=== PATIENT | female | born 1940 | race Caucasian/White ===

== ENCOUNTER → 2017-08-30 | Outpatient (CLI) | payer MEDICARE ==
[~2017-08-30] MED LIST: ADVAIR 100-501 EACH INH; AMLODIPINE BESY10 MG PO; ASPIR 8181 MG PO; BENICAR HCT 401 EACH PO; DIOVAN160 MG PO; HYDROCHLOROTHIA25 MG PO; LEVOCETIRIZINE D5 MG PO; MAGNESIUM250 MG PO; NEXIUM40 MG PO; NORCO 5-325 TA1 EACH PO; SERTRALINE HCL50 MG PO; SYNTHROID25 MCG PO; XALATAN2.5 ML OU
--- NOTE | 2017-08-30 14:34 | Diagnostic Imaging Report ---
PROCEDURE:X-RAY MODIFIED BARIUM SWALLOW COMPARISON:None. INDICATIONS:Not provided. DISCUSSION:Fluoroscopic examination was performed in conjunction with speech pathology, during swallowing of a variety of thin and thick liquid consistencies. FINDINGS: There is premature spillage to the vallecula on all consistencies. There is premature spillage into the piriform sinuses with thin liquids. Trace vallecular residue with all consistencies. No penetration or aspiration. CONCLUSION:No penetration or aspiration. Please see the report from speech pathology for complete details. Dictated by: Tamara Watt M.D. on 08/30/2017 at 14:35 Electronically approved by: Tamaar Watt M.D. on 08/30/2017 at 14:35
== END ==
LOC: DX 12:04
PROVIDERS: ATTEND Family Medicine
DX: R13.10 Dysphagia, unspecified (principal)
CPT/HCPCS: 74230; 92611; G8996; G8997; G8998

== ENCOUNTER → 2018-11-15 | Outpatient (CLI) | payer MEDICARE ==
--- NOTE | 2018-11-15 18:04 | Diagnostic Imaging Report ---
MRI SPINE LUMBAR WO HISTORY: Right hip and right leg pain COMPARISON: None. TECHNIQUE: Sagittal T1, sagittal T2, sagittal STIR, axial T2, coronal T2, and axial proton density weighted images of the lumbar spine were obtained without contrast. DISCUSSION: Number of non-rib bearing lumbar vertebral bodies: 5. Alignment: Normal lordosis. Subtle thoracolumbar levoscoliosis is present. Vertebrae: Small nodular T1 hyperintense lesions in the L1 and L3 vertebral bodies are likely hemangiomas. Otherwise, no fractures, infection or neoplasm. Conus medullaris: Normal, ends at L1-L2. Cauda equina: No masses or arachnoiditis. Posterior paraspinal muscles: Well preserved. No signal abnormalities. Soft tissues: No signal abnormalities. Mild to moderate multilevel disc degeneration is most prominent at L5-S1. T12-L1: Patent canal and foramina. L1-L2: Disc bulge without significant canal or foraminal stenosis. L2-L3: Disc bulge without significant canal or foraminal stenosis. L3-L4: Mild canal stenosis due to disc bulge and ligamentum flavum thickening. Mild bilateral foraminal stenoses due to disc bulge and facet arthrosis. L4-L5: Mild canal stenosis due to disc bulge and ligamentum flavum thickening. Mild to moderate right and mild left foraminal stenoses due to disc bulge and facet arthrosis. L5-S1: Mild to moderate right and mild left foraminal stenoses due to disc bulge and facet arthrosis. No significant canal stenosis. IMPRESSION: 1. 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 2. Multilevel bilateral degenerative foraminal stenoses - mild to moderate on the right at L4-L5 and L5-S1. 3. Mild degenerative canal stenoses at L3-L4 and L4-L5. Signed by: Dr. Ben Valero M.D. on 11/15/2018 6:01 PM
== END ==
LOC: MRI 14:46
PROVIDERS: ATTEND Family Medicine
DX: M54.16 Radiculopathy, lumbar region (principal)
CPT/HCPCS: 72148

== ENCOUNTER → 2020-05-14 | Outpatient (CLI) | payer MEDICARE | LOC: CARD 13:41 | PROVIDERS: ATTEND Family Medicine | DX: I73.9 Peripheral vascular disease, unspecified (principal) | CPT/HCPCS: 93880 ==

== ENCOUNTER → 2021-04-08 | Outpatient (CLI) | payer MEDICARE | LOC: CT 15:29 | PROVIDERS: ATTEND Family Medicine | DX: R06.02 Shortness of breath (principal) | CPT/HCPCS: 71250 ==

== ENCOUNTER → 2021-04-21 | Outpatient (CLI) | payer MEDICARE ==
[~2021-04-21] MED LIST changes: +GADOBENATE DIMEGLUMINE 1 ML IV ONE; +SODIUM CHLORIDE 0.9% 50ML 50 ML ONE
[2021-04-21 10:22] LABS: CREATININE, SERUM 0.88 mg/dL (0.57-1.11)
== END ==
LOC: MRI 09:24
PROVIDERS: ATTEND Family Medicine
DX: K76.9 Liver disease, unspecified (principal)
CPT/HCPCS: 36415; 74183; 82565; 84520; A9577

== ENCOUNTER → 2021-08-26 | Outpatient (CLI) | payer MEDICARE ==
[~2021-08-26] MED LIST changes: -GADOBENATE DIMEGLUMINE 1 ML IV ONE; -SODIUM CHLORIDE 0.9% 50ML 50 ML ONE
== END ==
LOC: RAD 11:57
PROVIDERS: ATTEND Internal Medicine
DX: M35.3 Polymyalgia rheumatica (principal); M25.552 Pain in left hip; M25.551 Pain in right hip
CPT/HCPCS: 73522

== ENCOUNTER → 2022-03-25 | Outpatient (CLI) | payer MEDICARE | LOC: MRI 07:25 | PROVIDERS: ATTEND Nurse Practitioner Adult Health | DX: M54.31 Sciatica, right side (principal) | CPT/HCPCS: 72148 ==

== ENCOUNTER 2022-04-07 07:36 | Inpatient (IN) | payer MEDICARE ==
[~2022-04-07] VITALS: Ht 162.6 cm; Wt 80.3 kg
[2022-04-07] MEDS ORDERED: SODIUM CHLORIDE FLUSH 10 ML SYR IV PRN (08:00)
[2022-04-07] MEDS ORDERED: SODIUM CHLORIDE 0.9% 1000ML 1,000 ML IV SCH (08:00)
[2022-04-07 08:25] LABS: BASOPHILS % 0.3 % (0.0-1.0); EOSINOPHILS % 0.3 % (0.0-6.0); HEMATOCRIT 30.2 % (34.2-44.1); HEMOGLOBIN 10.3 g/dL (12.0-16.0); LYMPHOCYTES # (AUTO) 1.9 (1.0-3.2); LYMPHOCYTES % 17.4 % (18.0-39.1); MEAN CORPUSCULAR HEMOGLOBIN 28.1 pg (28-32); MEAN CORPUSCULAR HGB CONC 34.1 g/dL (31-35); MEAN CORPUSCULAR VOLUME 82.3 fL (81-99); MONOCYTES % 18.9 % (4.4-11.3); NEUTROPHILS # (AUTO) 6.7 (2.1-6.9); PLATELET COUNT 267 x10e3/uL (140-360); RED BLOOD COUNT 3.67 x10e6/uL (3.6-5.1); RED CELL DISTRIBUTION WIDTH 15.3 % (11.7-14.4)
[2022-04-07 08:45] LABS: ALANINE AMINOTRANSFERASE 29 IU/L (0-55); ALBUMIN 1.8 g/dL (3.5-5.0); ALBUMIN/GLOBULIN RATIO 0.4 (0.8-2.0); ALKALINE PHOSPHATASE 127 IU/L (40-150); ANION GAP 16.6 mmol/L (8-16); BLOOD UREA NITROGEN 26 mg/dL (7-26); BUN/CREATININE RATIO 31 (6-25); CALCIUM 8.7 mg/dL (8.4-10.2); CARBON DIOXIDE 20 mmol/L (22-29); CHLORIDE 87 mmol/L (98-107); CREATININE, SERUM 0.83 mg/dL (0.57-1.11); GLUCOSE 120 mg/dL (74-118); POTASSIUM 4.6 mmol/L (3.5-5.1)
[2022-04-07 08:48] LABS: SODIUM 119 mmol/L (136-145)
[2022-04-07 08:53] LABS: INFLUENZAE A&B ANTIGEN (RAPID) NEGATIVE (NEGATIVE); RESPIRATORY SYNC. VIRUS NEGATIVE (NEGATIVE)
[2022-04-07 08:57] LABS: CLARITY,URINE SL CLOUDY (CLEAR); COLOR,URINE YELLOW (YELLOW); LEUKOCYTE ESTERASE ,URINE NEGATIVE (NEGATIVE)
[2022-04-07 08:58] LABS: AMPHETAMINES SCREEN,URINE NEGATIVE (NEGATIVE); BENZODIAZEPINES SCREEN,URINE NEGATIVE (NEGATIVE); KETONES,URINE TRACE (NEGATIVE); NITRITE,URINE NEGATIVE (NEGATIVE); PHENCYCLIDINE SCREEN,URINE NEGATIVE (NEGATIVE); PROTEIN,URINE DIPSTICK NEGATIVE (NEGATIVE); URINE UROBILINOGEN 0.2 mg/dL (0.2 - 1)
[2022-04-07 09:03] LABS: BACTERIA,URINE MODERATE /HPF; EPITHELIAL CELLS,URINE FEW /LPF; RBC,URINE 0-5 /HPF (0-5)
[2022-04-07 09:06] LABS: INR 1.12; PROTHROMBIN TIME 15.4 seconds (11.9-14.5)
[2022-04-07 09:07] LABS: PARTIAL THROMBOPLASTIN TIME 38.3 seconds (23.8-35.5)
[2022-04-07] MEDS: HYDROCODONE/APAP 10MG-325MG TAB PO PRN (18:27)
[2022-04-07 19:09] VITALS: BP 137/49
[2022-04-07] MEDS: LATANOPROST(OPTH) 2.5 ML BTL OU SCH ×2 (21:00→21:50)
[2022-04-07] MEDS ORDERED: IRBESARTAN150 MG PO (21:38)
[2022-04-07] MEDS ORDERED: AMLODIPINE BESYL5 MG PO (21:38)
[2022-04-07] MEDS ORDERED: ALENDRONATE SOD70 MG PO (21:38)
[2022-04-07] MEDS ORDERED: CELEBREX200 MG PO (21:38)
[2022-04-07] MEDS ORDERED: PANTOPRAZOLE SO40 MG PO (21:38)
[2022-04-07] MEDS ORDERED: SINGULAIR10 MG PO (21:38)
[2022-04-07] MEDS ORDERED: PREDNISONE10 MG PO (21:38)
[2022-04-07] MEDS ORDERED: NEURONTIN100 MG PO (21:38)
[2022-04-07 21:45] VITALS: BP 111/51
[2022-04-07 22:51] VITALS: BP 111/51
[2022-04-08] VITALS (7 sets, daily range): BP systolic 117–146; BP diastolic 43–89
[2022-04-08] MEDS: SODIUM CHLORIDE 0.9% 1000ML 1,000 ML IV SCH ×3 (01:15→21:07)
[2022-04-08] MEDS: HYDROCODONE/APAP 10MG-325MG TAB PO PRN ×3 (02:53→17:25)
[2022-04-08] MEDS: ACETAMINOPHEN 325 MG TAB PO PRN (02:53)
[2022-04-08 06:16] LABS: BASOPHILS % 0.4 % (0.0-1.0); EOSINOPHILS % 0.2 % (0.0-6.0); HEMATOCRIT 26.6 % (34.2-44.1); HEMOGLOBIN 9.3 g/dL (12.0-16.0); LYMPHOCYTES # (AUTO) 1.6 (1.0-3.2); LYMPHOCYTES % 15.2 % (18.0-39.1); MEAN CORPUSCULAR HEMOGLOBIN 28.5 pg (28-32); MEAN CORPUSCULAR VOLUME 81.6 fL (81-99); MONOCYTES # (AUTO) 2.2 (0.2-0.8); NEUTROPHILS # (AUTO) 6.3 (2.1-6.9); NEUTROPHILS % 60.5 % (38.7-80.0); PLATELET COUNT 208 x10e3/uL (140-360); RED BLOOD COUNT 3.26 x10e6/uL (3.6-5.1); RED CELL DISTRIBUTION WIDTH 16.1 % (11.7-14.4)
[2022-04-08 06:54] LABS: ALBUMIN 1.5 g/dL (3.5-5.0); ALBUMIN/GLOBULIN RATIO 0.4 (0.8-2.0); ANION GAP 17.2 mmol/L (8-16); CALCIUM 8.1 mg/dL (8.4-10.2); CREATININE, SERUM 0.88 mg/dL (0.57-1.11); POTASSIUM 4.2 mmol/L (3.5-5.1)
[2022-04-08] MEDS: LEVOTHYROXINE SODIUM 25 MCG TABLET PO SCH (07:51)
[2022-04-08] MEDS ORDERED: VALSARTAN 160 MG TAB PO SCH (09:00)
[2022-04-08] MEDS: LORATADINE 10 MG TAB PO SCH (10:26)
[2022-04-08] MEDS: PANTOPRAZOLE SOD 40 MG TABEC PO SCH (10:26)
[2022-04-08] MEDS: AMLODIPINE BESYLATE 5 MG TAB PO SCH (10:26)
[2022-04-08] MEDS: SERTRALINE HCL 50 MG TAB PO SCH (10:26)
[2022-04-08] MEDS: VALSARTAN 160 MG TAB PO SCH (16:00)
[2022-04-08] MEDS ORDERED: HYDROCHLOROTHIA50 MG PO (16:29)
[2022-04-08] MEDS: SODIUM BICARBONATE 650 MG TAB PO SCH (17:25)
[2022-04-08] MEDS: ONDANSETRON HCL INJ 2MG/ML 2ML 2 MG/ML VIAL IV PRN (17:39)
[2022-04-08] MEDS ORDERED: HYDROCODONE/APAP 5MG-325MG TAB PO PRN (19:00)
[2022-04-08] MEDS: SALMETEROL/FLUTICASONE 100/50 INH SCH (19:00)
[2022-04-08] MEDS: LATANOPROST(OPTH) 2.5 ML BTL OU SCH (21:07)
[2022-04-09] VITALS (8 sets, daily range): BP systolic 126–157; BP diastolic 51–68
[2022-04-09 05:10] LABS: BASOPHILS % 0.3 % (0.0-1.0); EOSINOPHILS % 0.1 % (0.0-6.0); HEMATOCRIT 29.5 % (34.2-44.1); HEMOGLOBIN 9.6 g/dL (12.0-16.0); LYMPHOCYTES # (AUTO) 1.6 (1.0-3.2); LYMPHOCYTES % 15.2 % (18.0-39.1); MEAN CORPUSCULAR HEMOGLOBIN 27.7 pg (28-32); MEAN CORPUSCULAR HGB CONC 32.5 g/dL (31-35); NEUTROPHILS # (AUTO) 6.6 (2.1-6.9); NEUTROPHILS % 63.6 % (38.7-80.0); PLATELET COUNT 231 x10e3/uL (140-360); RED BLOOD COUNT 3.47 x10e6/uL (3.6-5.1)
[2022-04-09 05:27] LABS: ANION GAP 18.4 mmol/L (8-16); CALCIUM 8.4 mg/dL (8.4-10.2); CREATININE, SERUM 1.01 mg/dL (0.57-1.11); MAGNESIUM 2.1 MG/DL (1.3-2.1); PHOSPHORUS 3.7 MG/DL (2.3-4.7); POTASSIUM 4.4 mmol/L (3.5-5.1)
[2022-04-09] MEDS: LEVOTHYROXINE SODIUM 25 MCG TABLET PO SCH (06:00)
[2022-04-09] MEDS ORDERED: ACETAMINOPHEN 1000 MG/100 ML IV PRN (07:00)
[2022-04-09] MEDS: SALMETEROL/FLUTICASONE 100/50 INH SCH (07:00)
[2022-04-09] MEDS: SODIUM CHLORIDE 0.9% 250ML IRRIG IR SCH ×5 (08:00→23:30)
[2022-04-09] MEDS: AMLODIPINE BESYLATE 5 MG TAB PO SCH (09:00)
[2022-04-09] MEDS: DOCUSATE SODIUM 100 MG CAP PO SCH ×2 (09:00→16:59)
[2022-04-09] MEDS: SERTRALINE HCL 50 MG TAB PO SCH (09:00)
[2022-04-09] MEDS: PREDNISONE 5 MG TAB PO SCH (09:00)
[2022-04-09] MEDS: LORATADINE 10 MG TAB PO SCH (09:00)
[2022-04-09] MEDS: PANTOPRAZOLE SOD 40 MG TABEC PO SCH (09:00)
[2022-04-09] MEDS: SODIUM BICARBONATE 650 MG TAB PO SCH (09:00)
[2022-04-09] MEDS: VALSARTAN 160 MG TAB PO SCH (09:00)
[2022-04-09] MEDS: SODIUM CHLORIDE 0.9% 1000ML 1,000 ML IV SCH (12:42)
[2022-04-09] MEDS ORDERED: SODIUM BICARBONATE 8.4% 75 ML in SODIUM CHLORIDE 0.45% 1,000 ML IV ONE (14:00)
[2022-04-09] MEDS ORDERED: BISACODYL 5 MG TAB EC PO ONE (14:00)
[2022-04-09 14:44] LABS: THYROID STIMULATING HORMONE 0.241 uIU/mL (0.350-4.940)
[2022-04-09] MEDS ORDERED: POLYETHYLENE GLYCOL 3350 17 GM PACK PO SCH (18:00)
[2022-04-10] VITALS (8 sets, daily range): BP systolic 140–163; BP diastolic 42–61
[2022-04-10] MEDS: LATANOPROST(OPTH) 2.5 ML BTL OU SCH ×2 (00:03→21:17)
[2022-04-10] MEDS: SODIUM CHLORIDE 0.9% 250ML IRRIG IR SCH ×6 (03:21→22:07)
[2022-04-10] MEDS: LEVOTHYROXINE SODIUM 25 MCG TABLET PO SCH (06:00)
[2022-04-10 06:28] LABS: BASOPHILS % 0.5 % (0.0-1.0); EOSINOPHILS % 0.2 % (0.0-6.0); HEMATOCRIT 26.6 % (34.2-44.1); HEMOGLOBIN 9.1 g/dL (12.0-16.0); LYMPHOCYTES # (AUTO) 1.3 (1.0-3.2); LYMPHOCYTES % 14.8 % (18.0-39.1); MEAN CORPUSCULAR HEMOGLOBIN 27.7 pg (28-32); MEAN CORPUSCULAR HGB CONC 34.2 g/dL (31-35); MEAN CORPUSCULAR VOLUME 81.1 fL (81-99); MONOCYTES # (AUTO) 1.5 (0.2-0.8); NEUTROPHILS # (AUTO) 5.6 (2.1-6.9); NEUTROPHILS % 65.3 % (38.7-80.0); PLATELET COUNT 215 x10e3/uL (140-360); RED BLOOD COUNT 3.28 x10e6/uL (3.6-5.1); RED CELL DISTRIBUTION WIDTH 16.4 % (11.7-14.4)
[2022-04-10 06:58] LABS: ALBUMIN 1.4 g/dL (3.5-5.0); ALBUMIN/GLOBULIN RATIO 0.4 (0.8-2.0); ANION GAP 15.8 mmol/L (8-16); CALCIUM 8.1 mg/dL (8.4-10.2); CREATININE, SERUM 0.8 mg/dL (0.57-1.11); POTASSIUM 3.8 mmol/L (3.5-5.1)
[2022-04-10] MEDS: SALMETEROL/FLUTICASONE 100/50 INH SCH ×2 (07:00→19:00)
[2022-04-10] MEDS: VALSARTAN 160 MG TAB PO SCH (09:00)
[2022-04-10] MEDS: PANTOPRAZOLE SOD 40 MG TABEC PO SCH (09:00)
[2022-04-10] MEDS: LORATADINE 10 MG TAB PO SCH (09:00)
[2022-04-10] MEDS: SERTRALINE HCL 50 MG TAB PO SCH (09:00)
[2022-04-10] MEDS: DOCUSATE SODIUM 100 MG CAP PO SCH ×2 (09:00→16:37)
[2022-04-10] MEDS: AMLODIPINE BESYLATE 5 MG TAB PO SCH (09:00)
[2022-04-10] MEDS: PREDNISONE 5 MG TAB PO SCH (09:00)
[2022-04-10] MEDS: DEXTROSE 5%/0.45% SOD CHL 1,000 ML IV SCH ×2 (09:53→22:07)
[2022-04-10] MEDS ORDERED: BISACODYL 10 MG SUPP PR ONE (11:15)
[2022-04-10] MEDS ORDERED: MINERAL OIL 132 ML BTL PR ONE (12:00)
[2022-04-10] MEDS: METOCLOPRAMIDE HCL 10 MG/2ML VIAL IV SCH ×3 (13:30→23:28)
[2022-04-11] VITALS (8 sets, daily range): BP systolic 128–148; BP diastolic 54–79
[2022-04-11] MEDS: SODIUM CHLORIDE 0.9% 250ML IRRIG IR SCH ×4 (03:01→14:59)
[2022-04-11] MEDS: DOCUSATE SODIUM 100 MG CAP PO SCH ×2 (03:01→17:00)
[2022-04-11] MEDS: LEVOTHYROXINE SODIUM 25 MCG TABLET PO SCH (06:00)
[2022-04-11] MEDS: METOCLOPRAMIDE HCL 10 MG/2ML VIAL IV SCH ×3 (06:11→17:45)
[2022-04-11] MEDS: SALMETEROL/FLUTICASONE 100/50 INH SCH ×2 (07:00→19:00)
[2022-04-11 08:08] LABS: BASOPHILS % 0.4 % (0.0-1.0); EOSINOPHILS % 0.2 % (0.0-6.0); HEMATOCRIT 27.7 % (34.2-44.1); HEMOGLOBIN 8.8 g/dL (12.0-16.0); LYMPHOCYTES # (AUTO) 1.6 (1.0-3.2); LYMPHOCYTES % 18.7 % (18.0-39.1); MEAN CORPUSCULAR HEMOGLOBIN 26.8 pg (28-32); MEAN CORPUSCULAR HGB CONC 31.8 g/dL (31-35); MEAN CORPUSCULAR VOLUME 84.5 fL (81-99); MONOCYTES # (AUTO) 1.5 (0.2-0.8); NEUTROPHILS # (AUTO) 5.1 (2.1-6.9); NEUTROPHILS % 61.4 % (38.7-80.0); PLATELET COUNT 220 x10e3/uL (140-360); RED BLOOD COUNT 3.28 x10e6/uL (3.6-5.1); RED CELL DISTRIBUTION WIDTH 16.3 % (11.7-14.4)
[2022-04-11 08:34] LABS: ANION GAP 17.4 mmol/L (8-16); CALCIUM 8.3 mg/dL (8.4-10.2); CREATININE, SERUM 0.76 mg/dL (0.57-1.11); POTASSIUM 3.4 mmol/L (3.5-5.1)
[2022-04-11] MEDS: VALSARTAN 160 MG TAB PO SCH (09:00)
[2022-04-11] MEDS: PANTOPRAZOLE SOD 40 MG TABEC PO SCH (09:00)
[2022-04-11] MEDS: PREDNISONE 5 MG TAB PO SCH (09:00)
[2022-04-11] MEDS: AMLODIPINE BESYLATE 5 MG TAB PO SCH (09:00)
[2022-04-11] MEDS: LORATADINE 10 MG TAB PO SCH (09:00)
[2022-04-11] MEDS: SERTRALINE HCL 50 MG TAB PO SCH (09:00)
[2022-04-11] MEDS ORDERED: POTASSIUM CHLORIDE 20MEQ/100ML 200 ML IV ONE (10:30)
[2022-04-11] MEDS: SODIUM CHLORIDE 0.9% 1000ML 1,000 ML IV SCH (12:27)
[2022-04-11] MEDS: LATANOPROST(OPTH) 2.5 ML BTL OU SCH (21:11)
[2022-04-12] MEDS: METOCLOPRAMIDE HCL 10 MG/2ML VIAL IV SCH ×2 (01:18→05:43)
[2022-04-12] MEDS: SODIUM CHLORIDE 0.9% 1000ML 1,000 ML IV SCH ×3 (01:18→17:03)
[2022-04-12] MEDS: LEVOTHYROXINE SODIUM 25 MCG TABLET PO SCH ×2 (05:43→05:47)
[2022-04-12 06:24] LABS: ALBUMIN 1.2 g/dL (3.5-5.0); ALBUMIN/GLOBULIN RATIO 0.3 (0.8-2.0); ANION GAP 11.7 mmol/L (8-16); CALCIUM 7.4 mg/dL (8.4-10.2); CREATININE, SERUM 0.66 mg/dL (0.57-1.11); MAGNESIUM 1.8 MG/DL (1.3-2.1); POTASSIUM 3.7 mmol/L (3.5-5.1)
[2022-04-12] MEDS: SALMETEROL/FLUTICASONE 100/50 INH SCH ×2 (07:00→19:00)
[2022-04-12 08:11] VITALS: BP 136/64
[2022-04-12 08:46] VITALS: BP 136/64
[2022-04-12] MEDS: DOCUSATE SODIUM 100 MG CAP PO SCH ×2 (09:00→17:00)
[2022-04-12] MEDS: SERTRALINE HCL 50 MG TAB PO SCH (09:00)
[2022-04-12] MEDS: AMLODIPINE BESYLATE 5 MG TAB PO SCH (09:00)
[2022-04-12] MEDS: LORATADINE 10 MG TAB PO SCH (09:00)
[2022-04-12] MEDS: PREDNISONE 5 MG TAB PO SCH (09:00)
[2022-04-12] MEDS: PANTOPRAZOLE SOD 40 MG TABEC PO SCH (09:00)
[2022-04-12] MEDS: VALSARTAN 160 MG TAB PO SCH (09:00)
[2022-04-12] MEDS: SODIUM CHLORIDE 0.9% 250ML IRRIG IR SCH (11:00)
[2022-04-12 11:18] VITALS: BP 151/62
[2022-04-12] MEDS: KETOROLAC TROMETHAMINE 30 MG/ML VIAL IM PRN ×2 (12:46→21:15)
[2022-04-12 16:06] VITALS: BP 108/49
[2022-04-12 20:20] VITALS: BP 108/49
[2022-04-12] MEDS: LATANOPROST(OPTH) 2.5 ML BTL OU SCH (21:11)
[2022-04-12 21:17] VITALS: BP 147/55
[2022-04-13 01:04] VITALS: BP 108/45
[2022-04-13] MEDS: SODIUM CHLORIDE 0.9% 1000ML 1,000 ML IV SCH (02:15)
[2022-04-13] MEDS: SODIUM CHLORIDE 0.9% 250ML IRRIG IR SCH ×2 (03:25→07:42)
[2022-04-13 03:41] VITALS: BP 130/44
[2022-04-13] MEDS: LEVOTHYROXINE SODIUM 25 MCG TABLET PO SCH (06:00)
[2022-04-13 06:26] LABS: BASOPHILS # (AUTO) 0.1 (0.0-0.1); BASOPHILS % 0.6 % (0.0-1.0); EOSINOPHILS # (AUTO) 0.2 (0.0-0.4); EOSINOPHILS % 1.6 % (0.0-6.0); HEMOGLOBIN 8.6 g/dL (12.0-16.0); LYMPHOCYTES # (AUTO) 1.1 (1.0-3.2); LYMPHOCYTES % 11.6 % (18.0-39.1); MEAN CORPUSCULAR HGB CONC 30.7 g/dL (31-35); MEAN CORPUSCULAR VOLUME 87.8 fL (81-99); MONOCYTES # (AUTO) 1.1 (0.2-0.8); MONOCYTES % 11.9 % (4.4-11.3); NEUTROPHILS % 73.1 % (38.7-80.0); PLATELET COUNT 173 x10e3/uL (140-360); RED BLOOD COUNT 3.19 x10e6/uL (3.6-5.1); RED CELL DISTRIBUTION WIDTH 16.8 % (11.7-14.4)
[2022-04-13 06:51] LABS: ALBUMIN 1.2 g/dL (3.5-5.0); ALBUMIN/GLOBULIN RATIO 0.3 (0.8-2.0); ANION GAP 14.8 mmol/L (8-16); CALCIUM 8.1 mg/dL (8.4-10.2); CREATININE, SERUM 0.69 mg/dL (0.57-1.11); POTASSIUM 3.8 mmol/L (3.5-5.1)
[2022-04-13] MEDS: SALMETEROL/FLUTICASONE 100/50 INH SCH ×2 (07:00→19:00)
[2022-04-13 08:00] VITALS: BP 122/49
[2022-04-13] MEDS: DOCUSATE SODIUM 100 MG CAP PO SCH ×2 (09:00→16:40)
[2022-04-13] MEDS: PANTOPRAZOLE SOD 40 MG TABEC PO SCH (09:00)
[2022-04-13] MEDS: AMLODIPINE BESYLATE 5 MG TAB PO SCH (09:00)
[2022-04-13] MEDS: LORATADINE 10 MG TAB PO SCH (09:00)
[2022-04-13] MEDS: PREDNISONE 5 MG TAB PO SCH (09:00)
[2022-04-13] MEDS: SERTRALINE HCL 50 MG TAB PO SCH (09:00)
[2022-04-13] MEDS: VALSARTAN 160 MG TAB PO SCH (09:00)
[2022-04-13] MEDS: SODIUM BICARBONATE 8.4% 100 ML in DEXTROSE 5% 1,000 ML IV SCH (10:00)
[2022-04-13] MEDS ORDERED: DIATRIZOATE MEGL/DIATRIZOA SOD 120 ML BTL PO ONE ×2 (10:54→10:56)
[2022-04-13 12:02] VITALS: BP 124/42
[2022-04-13 16:00] VITALS: BP 130/64
[2022-04-13] MEDS: LATANOPROST(OPTH) 2.5 ML BTL OU SCH (20:54)
[2022-04-14] VITALS (9 sets, daily range): BP systolic 109–140; BP diastolic 46–63
[2022-04-14] MEDS: SODIUM BICARBONATE 8.4% 100 ML in DEXTROSE 5% 1,000 ML IV SCH ×2 (00:40→15:20)
[2022-04-14] MEDS: LEVOTHYROXINE SODIUM 25 MCG TABLET PO SCH (06:38)
[2022-04-14 06:42] LABS: ALBUMIN 1.2 g/dL (3.5-5.0); ALBUMIN/GLOBULIN RATIO 0.3 (0.8-2.0); ANION GAP 11.5 mmol/L (8-16); CALCIUM 8.1 mg/dL (8.4-10.2); CREATININE, SERUM 0.69 mg/dL (0.57-1.11); MAGNESIUM 2.1 MG/DL (1.3-2.1); PHOSPHORUS 1.6 MG/DL (2.3-4.7); POTASSIUM 3.5 mmol/L (3.5-5.1)
[2022-04-14] MEDS: SALMETEROL/FLUTICASONE 100/50 INH SCH ×2 (07:00→19:00)
[2022-04-14] MEDS: LORATADINE 10 MG TAB PO SCH (09:00)
[2022-04-14] MEDS: PREDNISONE 5 MG TAB PO SCH (09:00)
[2022-04-14] MEDS: AMLODIPINE BESYLATE 5 MG TAB PO SCH (09:00)
[2022-04-14] MEDS: DOCUSATE SODIUM 100 MG CAP PO SCH ×2 (09:00→17:00)
[2022-04-14] MEDS: VALSARTAN 160 MG TAB PO SCH (09:00)
[2022-04-14] MEDS: SERTRALINE HCL 50 MG TAB PO SCH (09:00)
[2022-04-14] MEDS: PANTOPRAZOLE SOD 40 MG TABEC PO SCH (09:00)
[2022-04-14] MEDS ORDERED: POTASSIUM PHOSPHATE 30 MM in SODIUM CHLORIDE 0.9% 250ML 250 ML IV ONE (11:00)
[2022-04-14] MEDS: LATANOPROST(OPTH) 2.5 ML BTL OU SCH (21:13)
[2022-04-15] VITALS (7 sets, daily range): BP systolic 110–136; BP diastolic 44–61
[2022-04-15] MEDS: LEVOTHYROXINE SODIUM 25 MCG TABLET PO SCH (06:20)
[2022-04-15] MEDS: SODIUM BICARBONATE 8.4% 100 ML in DEXTROSE 5% 1,000 ML IV SCH ×2 (06:37→20:40)
[2022-04-15] MEDS: SALMETEROL/FLUTICASONE 100/50 INH SCH ×2 (07:25→19:00)
[2022-04-15] MEDS: DOCUSATE SODIUM 100 MG CAP PO SCH ×2 (09:06→17:00)
[2022-04-15] MEDS: LORATADINE 10 MG TAB PO SCH (09:06)
[2022-04-15] MEDS: PANTOPRAZOLE SOD 40 MG TABEC PO SCH (09:07)
[2022-04-15] MEDS: PREDNISONE 5 MG TAB PO SCH (09:07)
[2022-04-15] MEDS: SERTRALINE HCL 50 MG TAB PO SCH (09:07)
[2022-04-15] MEDS: VALSARTAN 160 MG TAB PO SCH (09:07)
[2022-04-15] MEDS: AMLODIPINE BESYLATE 5 MG TAB PO SCH (09:07)
[2022-04-15] MEDS ORDERED: BUMETANIDE INJ 0.25MG/ML 4ML VIAL IV ONE (11:30)
[2022-04-15 12:09] LABS: ALBUMIN 1.3 g/dL (3.5-5.0); ALBUMIN/GLOBULIN RATIO 0.3 (0.8-2.0); ANION GAP 13.5 mmol/L (8-16); CALCIUM 7.9 mg/dL (8.4-10.2); CREATININE, SERUM 0.63 mg/dL (0.57-1.11); POTASSIUM 3.5 mmol/L (3.5-5.1)
[2022-04-15 12:47] LABS: MAGNESIUM 1.7 MG/DL (1.3-2.1); PHOSPHORUS 2.3 MG/DL (2.3-4.7)
[2022-04-15] MEDS ORDERED: MAGNESIUM SULFATE 2GM/50ML 50 ML IV ONE ×2 (13:15→16:30)
[2022-04-15] MEDS ORDERED: KCL 20MEQ/.9 SOD CHL 1,000 ML IV SCH (13:15)
[2022-04-15] MEDS ORDERED: POTASSIUM CHLORIDE 20MEQ/100ML 100 ML IV ONE (14:00)
[2022-04-15] MEDS ORDERED: METOCLOPRAMIDE HCL 10 MG/2ML VIAL IV ONE (19:30)
[2022-04-15] MEDS: LATANOPROST(OPTH) 2.5 ML BTL OU SCH (20:55)
[2022-04-16] VITALS (8 sets, daily range): BP systolic 116–129; BP diastolic 48–62
[2022-04-16] MEDS: LEVOTHYROXINE SODIUM 25 MCG TABLET PO SCH (06:00)
[2022-04-16 06:35] LABS: BASOPHILS % 0.5 % (0.0-1.0); EOSINOPHILS # (AUTO) 0.2 (0.0-0.4); EOSINOPHILS % 2.1 % (0.0-6.0); HEMATOCRIT 23.2 % (34.2-44.1); HEMOGLOBIN 7.3 g/dL (12.0-16.0); LYMPHOCYTES # (AUTO) 1.5 (1.0-3.2); LYMPHOCYTES % 16.9 % (18.0-39.1); MEAN CORPUSCULAR HEMOGLOBIN 26.6 pg (28-32); MEAN CORPUSCULAR HGB CONC 31.5 g/dL (31-35); MEAN CORPUSCULAR VOLUME 84.7 fL (81-99); MONOCYTES # (AUTO) 1.2 (0.2-0.8); MONOCYTES % 13.9 % (4.4-11.3); NEUTROPHILS # (AUTO) 5.7 (2.1-6.9); NEUTROPHILS % 65.6 % (38.7-80.0); PLATELET COUNT 181 x10e3/uL (140-360); RED BLOOD COUNT 2.74 x10e6/uL (3.6-5.1); RED CELL DISTRIBUTION WIDTH 17.2 % (11.7-14.4)
[2022-04-16] MEDS: SODIUM BICARBONATE 8.4% 100 ML in DEXTROSE 5% 1,000 ML IV SCH ×2 (06:52→10:54)
[2022-04-16 07:14] LABS: ALBUMIN 1.2 g/dL (3.5-5.0); ALBUMIN/GLOBULIN RATIO 0.3 (0.8-2.0); ANION GAP 14.7 mmol/L (8-16); CALCIUM 7.8 mg/dL (8.4-10.2); CREATININE, SERUM 0.76 mg/dL (0.57-1.11); POTASSIUM 3.7 mmol/L (3.5-5.1)
[2022-04-16] MEDS: SALMETEROL/FLUTICASONE 100/50 INH SCH (07:27)
[2022-04-16] MEDS ORDERED: CITRATE OF MAGNESIA 300ML BOTTLE PO ONE (08:15)
[2022-04-16] MEDS: DOCUSATE SODIUM 100 MG CAP PO SCH ×2 (08:21→17:00)
[2022-04-16] MEDS: LORATADINE 10 MG TAB PO SCH (08:22)
[2022-04-16] MEDS: PANTOPRAZOLE SOD 40 MG TABEC PO SCH (08:22)
[2022-04-16] MEDS: SERTRALINE HCL 50 MG TAB PO SCH (08:22)
[2022-04-16] MEDS: PREDNISONE 5 MG TAB PO SCH (08:22)
[2022-04-16] MEDS: AMLODIPINE BESYLATE 5 MG TAB PO SCH (08:23)
[2022-04-16] MEDS ORDERED: CITRATE OF MAGNESIA 300ML BOTTLE PO NR (09:45)
[2022-04-16] MEDS: LATANOPROST(OPTH) 2.5 ML BTL OU SCH (20:33)
[2022-04-16] MEDS: ONDANSETRON HCL INJ 2MG/ML 2ML 2 MG/ML VIAL IV PRN (22:06)
[2022-04-17] VITALS (7 sets, daily range): BP systolic 106–138; BP diastolic 45–53
[2022-04-17] MEDS: SODIUM BICARBONATE 8.4% 100 ML in DEXTROSE 5% 1,000 ML IV SCH ×2 (02:00→17:00)
[2022-04-17] MEDS: LEVOTHYROXINE SODIUM 25 MCG TABLET PO SCH (05:11)
[2022-04-17 06:13] LABS: BASOPHILS % 0.4 % (0.0-1.0); EOSINOPHILS # (AUTO) 0.2 (0.0-0.4); EOSINOPHILS % 1.8 % (0.0-6.0); HEMATOCRIT 23.5 % (34.2-44.1); HEMOGLOBIN 7.3 g/dL (12.0-16.0); LYMPHOCYTES # (AUTO) 1.6 (1.0-3.2); LYMPHOCYTES % 14.3 % (18.0-39.1); MEAN CORPUSCULAR HEMOGLOBIN 26.4 pg (28-32); MEAN CORPUSCULAR HGB CONC 31.1 g/dL (31-35); MEAN CORPUSCULAR VOLUME 84.8 fL (81-99); MONOCYTES # (AUTO) 1.6 (0.2-0.8); MONOCYTES % 14.3 % (4.4-11.3); NEUTROPHILS # (AUTO) 7.7 (2.1-6.9); NEUTROPHILS % 68.1 % (38.7-80.0); PLATELET COUNT 204 x10e3/uL (140-360); RED BLOOD COUNT 2.77 x10e6/uL (3.6-5.1); RED CELL DISTRIBUTION WIDTH 16.9 % (11.7-14.4)
[2022-04-17 06:38] LABS: ANION GAP 16.7 mmol/L (8-16); CALCIUM 8.1 mg/dL (8.4-10.2); CREATININE, SERUM 0.66 mg/dL (0.57-1.11); MAGNESIUM 1.7 MG/DL (1.3-2.1); PHOSPHORUS 2.4 MG/DL (2.3-4.7); POTASSIUM 3.7 mmol/L (3.5-5.1)
[2022-04-17] MEDS: SERTRALINE HCL 50 MG TAB PO SCH (09:09)
[2022-04-17] MEDS: LORATADINE 10 MG TAB PO SCH (09:09)
[2022-04-17] MEDS: AMLODIPINE BESYLATE 5 MG TAB PO SCH (09:09)
[2022-04-17] MEDS: DOCUSATE SODIUM 100 MG CAP PO SCH ×2 (09:09→17:00)
[2022-04-17] MEDS: PANTOPRAZOLE SOD 40 MG TABEC PO SCH (09:09)
[2022-04-17] MEDS: KETOROLAC TROMETHAMINE 30 MG/ML VIAL IM PRN (09:28)
[2022-04-17] MEDS ORDERED: DEXTROSE 5% 0 ML IV ONE (09:33)
[2022-04-17] MEDS: ACETAMINOPHEN 325 MG TAB PO PRN (21:08)
[2022-04-17] MEDS: LATANOPROST(OPTH) 2.5 ML BTL OU SCH (21:09)
[2022-04-18] VITALS (7 sets, daily range): BP systolic 93–144; BP diastolic 42–69
[2022-04-18] MEDS: LEVOTHYROXINE SODIUM 25 MCG TABLET PO SCH (05:52)
[2022-04-18] MEDS: SERTRALINE HCL 50 MG TAB PO SCH (09:05)
[2022-04-18] MEDS: AMLODIPINE BESYLATE 5 MG TAB PO SCH (09:05)
[2022-04-18] MEDS: DOCUSATE SODIUM 100 MG CAP PO SCH ×2 (09:05→17:37)
[2022-04-18] MEDS: PANTOPRAZOLE SOD 40 MG TABEC PO SCH (09:05)
[2022-04-18] MEDS: LORATADINE 10 MG TAB PO SCH (09:05)
[2022-04-18] MEDS: SODIUM BICARBONATE 8.4% 100 ML in DEXTROSE 5% 1,000 ML IV SCH (09:16)
[2022-04-18] MEDS: ACETAMINOPHEN 325 MG TAB PO PRN (09:38)
[2022-04-18] MEDS ORDERED: MAGNESIUM SULFATE 2GM/50ML 50 ML IV ONE (13:00)
[2022-04-18] MEDS: FUROSEMIDE INJ 10 MG/ML 4 ML VIAL IV SCH ×2 (13:34→21:57)
[2022-04-18 13:55] LABS: BASOPHILS # (AUTO) 0.1 (0.0-0.1); EOSINOPHILS # (AUTO) 0.4 (0.0-0.4); EOSINOPHILS % 4.2 % (0.0-6.0); HEMOGLOBIN 7.2 g/dL (12.0-16.0); LYMPHOCYTES # (AUTO) 1.5 (1.0-3.2); LYMPHOCYTES % 17.5 % (18.0-39.1); MEAN CORPUSCULAR HEMOGLOBIN 26.6 pg (28-32); MEAN CORPUSCULAR HGB CONC 32.9 g/dL (31-35); MEAN CORPUSCULAR VOLUME 80.8 fL (81-99); MONOCYTES % 12.1 % (4.4-11.3); NEUTROPHILS # (AUTO) 5.4 (2.1-6.9); NEUTROPHILS % 64.1 % (38.7-80.0); RED BLOOD COUNT 2.71 x10e6/uL (3.6-5.1); RED CELL DISTRIBUTION WIDTH 17.7 % (11.7-14.4)
[2022-04-18 14:01] LABS: HEMATOCRIT 21.9 % (34.2-44.1)
[2022-04-18 14:02] LABS: PLATELET COUNT 254 x10e3/uL (140-360)
[2022-04-18 14:14] LABS: ANION GAP 14.4 mmol/L (8-16); CALCIUM 7.8 mg/dL (8.4-10.2); CREATININE, SERUM 1.04 mg/dL (0.57-1.11); POTASSIUM 3.4 mmol/L (3.5-5.1)
[2022-04-18] MEDS: LATANOPROST(OPTH) 2.5 ML BTL OU SCH (21:57)
[2022-04-19 00:30] VITALS: BP 115/43
[2022-04-19 04:30] VITALS: BP 133/49
[2022-04-19] MEDS: LEVOTHYROXINE SODIUM 25 MCG TABLET PO SCH (06:10)
[2022-04-19] MEDS: FUROSEMIDE INJ 10 MG/ML 4 ML VIAL IV SCH ×3 (06:10→21:00)
[2022-04-19 06:12] LABS: BASOPHILS # (AUTO) 0.1 (0.0-0.1); BASOPHILS % 0.5 % (0.0-1.0); EOSINOPHILS # (AUTO) 0.4 (0.0-0.4); EOSINOPHILS % 4.8 % (0.0-6.0); HEMATOCRIT 23.5 % (34.2-44.1); HEMOGLOBIN 7.4 g/dL (12.0-16.0); LYMPHOCYTES # (AUTO) 1.9 (1.0-3.2); LYMPHOCYTES % 20.9 % (18.0-39.1); MEAN CORPUSCULAR HEMOGLOBIN 26.4 pg (28-32); MEAN CORPUSCULAR HGB CONC 31.5 g/dL (31-35); MEAN CORPUSCULAR VOLUME 83.9 fL (81-99); MONOCYTES # (AUTO) 1.1 (0.2-0.8); NEUTROPHILS # (AUTO) 5.5 (2.1-6.9); NEUTROPHILS % 60.7 % (38.7-80.0); PLATELET COUNT 299 x10e3/uL (140-360); RED CELL DISTRIBUTION WIDTH 17.5 % (11.7-14.4)
[2022-04-19 06:47] LABS: ALBUMIN 1.2 g/dL (3.5-5.0); ALBUMIN/GLOBULIN RATIO 0.3 (0.8-2.0); ANION GAP 14.4 mmol/L (8-16); CALCIUM 7.7 mg/dL (8.4-10.2); CREATININE, SERUM 1.06 mg/dL (0.57-1.11); MAGNESIUM 1.8 MG/DL (1.3-2.1); PHOSPHORUS 3.7 MG/DL (2.3-4.7); POTASSIUM 3.4 mmol/L (3.5-5.1)
[2022-04-19] MEDS: SALMETEROL/FLUTICASONE 100/50 INH SCH (07:00)
[2022-04-19 07:45] LABS: FERRITIN 2506.09 ng/mL (4.63-204.00)
[2022-04-19] MEDS: AMLODIPINE BESYLATE 5 MG TAB PO SCH (09:00)
[2022-04-19] MEDS: LORATADINE 10 MG TAB PO SCH (09:00)
[2022-04-19] MEDS: PANTOPRAZOLE SOD 40 MG TABEC PO SCH (09:00)
[2022-04-19] MEDS: DOCUSATE SODIUM 100 MG CAP PO SCH ×2 (09:00→17:00)
[2022-04-19] MEDS: ONDANSETRON HCL INJ 2MG/ML 2ML 2 MG/ML VIAL IV PRN (09:40)
[2022-04-19 09:41] VITALS: BP 125/65
[2022-04-19 12:36] VITALS: BP 108/42
[2022-04-19 13:11] LABS: ABG HCO3 29 mmol/L (22-26); ABG PCO2 35 mmHg (35-45); ABG PH 7.53 (7.35-7.45); ABG PO2 75 mmHg (80-105); ABG TCO2 30
[2022-04-19 16:21] VITALS: BP 120/59
[2022-04-19] MEDS ORDERED: BISACODYL 5 MG TAB EC PO ONE (19:55)
[2022-04-19 20:00] VITALS: BP 122/43
[2022-04-19] MEDS: LATANOPROST(OPTH) 2.5 ML BTL OU SCH (20:26)
[2022-04-19] MEDS ORDERED: IOPAMIDOL 370 MG/ML 100 ML INFUS..BTL INJ ONE (21:15)
[2022-04-20] VITALS (9 sets, daily range): BP systolic 106–125; BP diastolic 41–86
[2022-04-20] MEDS: LEVOTHYROXINE SODIUM 25 MCG TABLET PO SCH (03:01)
[2022-04-20] MEDS: FUROSEMIDE INJ 10 MG/ML 4 ML VIAL IV SCH ×3 (05:37→21:45)
[2022-04-20] MEDS: SALMETEROL/FLUTICASONE 100/50 INH SCH ×3 (06:35→19:35)
[2022-04-20] MEDS ORDERED: PEG (High)/E-LYTE SOLN 4,000 ML BTL NG ONE ×2 (07:30→15:00)
[2022-04-20] MEDS: LORATADINE 10 MG TAB PO SCH (09:13)
[2022-04-20] MEDS: PANTOPRAZOLE SOD 40 MG TABEC PO SCH (09:13)
[2022-04-20] MEDS: DOCUSATE SODIUM 100 MG CAP PO SCH ×2 (09:13→17:00)
[2022-04-20] MEDS: AMLODIPINE BESYLATE 5 MG TAB PO SCH (09:18)
[2022-04-20] MEDS ORDERED: ALTEPLASE RECOMBINANT 2 MG/2 ML VIAL IV ONE (18:30)
[2022-04-20] MEDS ORDERED: IRON SUCROSE 100 MG in SODIUM CHLORIDE 0.9% 100 ML IV SCH (18:45)
[2022-04-20 19:18] LABS: ALBUMIN 1.4 g/dL (3.5-5.0); ALBUMIN/GLOBULIN RATIO 0.4 (0.8-2.0); ANION GAP 16.1 mmol/L (8-16); CALCIUM 8.1 mg/dL (8.4-10.2); CREATININE, SERUM 1.27 mg/dL (0.57-1.11); POTASSIUM 3.1 mmol/L (3.5-5.1)
[2022-04-20] MEDS ORDERED: MAGNESIUM SULF 1GRAM/DEXTROSE 100 ML IV ONE (19:45)
[2022-04-20] MEDS: IRON SUCROSE 100 MG in SODIUM CHLORIDE 0.9% 100 ML IV SCH (20:23)
[2022-04-20] MEDS: POTASSIUM CHLORIDE 20MEQ/100ML 100 ML IV SCH ×2 (20:24→21:46)
[2022-04-20] MEDS: LATANOPROST(OPTH) 2.5 ML BTL OU SCH (21:48)
[2022-04-21] VITALS (7 sets, daily range): BP systolic 109–159; BP diastolic 42–71
[2022-04-21] MEDS: LEVOTHYROXINE SODIUM 25 MCG TABLET PO SCH (06:00)
[2022-04-21 07:00] LABS: ALBUMIN 1.3 g/dL (3.5-5.0); ALBUMIN/GLOBULIN RATIO 0.4 (0.8-2.0); ANION GAP 16.2 mmol/L (8-16); CALCIUM 7.7 mg/dL (8.4-10.2); CREATININE, SERUM 1.01 mg/dL (0.57-1.11); POTASSIUM 3.2 mmol/L (3.5-5.1)
[2022-04-21 07:03] LABS: MAGNESIUM 1.7 MG/DL (1.3-2.1); PHOSPHORUS 3.7 MG/DL (2.3-4.7)
[2022-04-21] MEDS: FUROSEMIDE INJ 10 MG/ML 4 ML VIAL IV SCH ×3 (07:12→21:19)
[2022-04-21] MEDS: SALMETEROL/FLUTICASONE 100/50 INH SCH ×2 (07:14→19:00)
[2022-04-21 07:38] LABS: BASOPHILS # (AUTO) 0.1 (0.0-0.1); BASOPHILS % 0.6 % (0.0-1.0); EOSINOPHILS # (AUTO) 0.8 (0.0-0.4); EOSINOPHILS % 8.8 % (0.0-6.0); LYMPHOCYTES # (AUTO) 1.5 (1.0-3.2); MEAN CORPUSCULAR HEMOGLOBIN 26.1 pg (28-32); MEAN CORPUSCULAR HGB CONC 30.8 g/dL (31-35); MEAN CORPUSCULAR VOLUME 84.6 fL (81-99); MONOCYTES # (AUTO) 1.4 (0.2-0.8); MONOCYTES % 15.3 % (4.4-11.3); NEUTROPHILS # (AUTO) 5.2 (2.1-6.9); NEUTROPHILS % 57.1 % (38.7-80.0); PLATELET COUNT 262 x10e3/uL (140-360); RED BLOOD COUNT 2.53 x10e6/uL (3.6-5.1); RED CELL DISTRIBUTION WIDTH 17.8 % (11.7-14.4)
[2022-04-21 07:49] LABS: HEMATOCRIT 21.4 % (34.2-44.1); HEMOGLOBIN 6.6 g/dL (12.0-16.0)
[2022-04-21] MEDS ORDERED: SODIUM CHLORIDE 0.9% 250ML 250 ML IV ONE (08:15)
[2022-04-21] MEDS ORDERED: CITRATE OF MAGNESIA 300ML BOTTLE PO ONE (08:45)
[2022-04-21] MEDS: LORATADINE 10 MG TAB PO SCH (09:00)
[2022-04-21] MEDS: AMLODIPINE BESYLATE 5 MG TAB PO SCH (09:00)
[2022-04-21] MEDS: PANTOPRAZOLE SOD 40 MG TABEC PO SCH (09:00)
[2022-04-21] MEDS: DOCUSATE SODIUM 100 MG CAP PO SCH ×2 (09:00→17:00)
[2022-04-21] MEDS ORDERED: DEXTROSE 5%/0.45% SOD CHL 1,000 ML IV SCH (10:30)
[2022-04-21] MEDS: DEXTROSE 5%/0.9% SOD CHL 1,000 ML IV SCH (12:48)
[2022-04-21] MEDS ORDERED: MAGNESIUM SULFATE 2GM/50ML 50 ML IV ONE (13:00)
[2022-04-21] MEDS ORDERED: PROPOFOL IV EMULSION 10 MG/ML 20 ML VIAL ONE (13:38)
[2022-04-21] MEDS: POTASSIUM CHLORIDE 20MEQ/100ML 100 ML IV SCH ×2 (13:51→16:30)
[2022-04-21] MEDS ORDERED: SODIUM CHLORIDE 0.9% 250ML 250 ML ONE ×2 (14:31→17:50)
[2022-04-21] MEDS: IRON SUCROSE 100 MG in SODIUM CHLORIDE 0.9% 100 ML IV SCH (15:30)
[2022-04-21] MEDS: SUCRALFATE 1 GM TAB PO SCH (21:19)
[2022-04-21] MEDS: LATANOPROST(OPTH) 2.5 ML BTL OU SCH (21:20)
[2022-04-22] VITALS (8 sets, daily range): BP systolic 104–123; BP diastolic 48–63
[2022-04-22 06:11] LABS: BASOPHILS # (AUTO) 0.1 (0.0-0.1); EOSINOPHILS % 10.1 % (0.0-6.0); HEMATOCRIT 28.2 % (34.2-44.1); HEMOGLOBIN 9.6 g/dL (12.0-16.0); LYMPHOCYTES # (AUTO) 1.4 (1.0-3.2); LYMPHOCYTES % 13.8 % (18.0-39.1); MEAN CORPUSCULAR HEMOGLOBIN 26.2 pg (28-32); MONOCYTES # (AUTO) 1.3 (0.2-0.8); MONOCYTES % 13.1 % (4.4-11.3); NEUTROPHILS # (AUTO) 6.2 (2.1-6.9); NEUTROPHILS % 60.7 % (38.7-80.0); PLATELET COUNT 251 x10e3/uL (140-360); RED BLOOD COUNT 3.66 x10e6/uL (3.6-5.1); RED CELL DISTRIBUTION WIDTH 18.1 % (11.7-14.4)
[2022-04-22] MEDS: LEVOTHYROXINE SODIUM 25 MCG TABLET PO SCH (06:16)
[2022-04-22 06:30] LABS: ALBUMIN 1.4 g/dL (3.5-5.0); ALBUMIN/GLOBULIN RATIO 0.4 (0.8-2.0); ANION GAP 13.8 mmol/L (8-16); CALCIUM 7.7 mg/dL (8.4-10.2); CREATININE, SERUM 0.81 mg/dL (0.57-1.11)
[2022-04-22 06:41] LABS: POTASSIUM 2.8 mmol/L (3.5-5.1)
[2022-04-22 06:59] LABS: MAGNESIUM 1.5 MG/DL (1.3-2.1); PHOSPHORUS 2.5 MG/DL (2.3-4.7)
[2022-04-22] MEDS: PANTOPRAZOLE SOD 40 MG TABEC PO SCH (08:30)
[2022-04-22] MEDS: AMLODIPINE BESYLATE 5 MG TAB PO SCH (08:30)
[2022-04-22] MEDS: FUROSEMIDE INJ 10 MG/ML 4 ML VIAL IV SCH (08:30)
[2022-04-22] MEDS: SUCRALFATE 1 GM TAB PO SCH ×4 (08:30→21:00)
[2022-04-22] MEDS: LORATADINE 10 MG TAB PO SCH (08:30)
[2022-04-22] MEDS: DOCUSATE SODIUM 100 MG CAP PO SCH ×2 (08:30→16:14)
[2022-04-22] MEDS: SALMETEROL/FLUTICASONE 100/50 INH SCH ×2 (09:00→20:05)
[2022-04-22] MEDS: DEXTROSE 5%/0.9% SOD CHL 1,000 ML IV SCH (09:00)
[2022-04-22] MEDS: SODIUM CHLORIDE 0.9% 1000ML 1,000 ML IV SCH (10:25)
[2022-04-22] MEDS: POTASSIUM CHLORIDE 20MEQ/100ML 100 ML IV SCH ×3 (10:25→13:39)
[2022-04-22] MEDS ORDERED: ONDANSETRON HCL 4 MG ORAL DISINTEGRATING TAB PO PRN (11:45)
[2022-04-22] MEDS ORDERED: MAGNESIUM SULFATE 2GM/50ML 50 ML IV ONE ×2 (13:00→16:00)
[2022-04-22] MEDS: IRON SUCROSE 100 MG in SODIUM CHLORIDE 0.9% 100 ML IV SCH (13:39)
[2022-04-22] MEDS: SODIUM CHLORIDE 1 GM TAB PO SCH ×2 (18:30→21:00)
[2022-04-22] MEDS: LATANOPROST(OPTH) 2.5 ML BTL OU SCH (21:00)
[2022-04-23] VITALS (7 sets, daily range): BP systolic 109–127; BP diastolic 46–64
[2022-04-23] MEDS: LEVOTHYROXINE SODIUM 25 MCG TABLET PO SCH (05:24)
[2022-04-23] MEDS: SODIUM CHLORIDE 0.9% 1000ML 1,000 ML IV SCH (05:27)
[2022-04-23] MEDS: SALMETEROL/FLUTICASONE 100/50 INH SCH ×2 (06:15→20:20)
[2022-04-23 07:52] LABS: ALBUMIN 1.3 g/dL (3.5-5.0); ALBUMIN/GLOBULIN RATIO 0.4 (0.8-2.0); ANION GAP 15.5 mmol/L (8-16); CALCIUM 7.6 mg/dL (8.4-10.2); CREATININE, SERUM 0.73 mg/dL (0.57-1.11); POTASSIUM 3.5 mmol/L (3.5-5.1)
[2022-04-23] MEDS: FUROSEMIDE 40 MG TAB PO SCH (08:29)
[2022-04-23] MEDS: DOCUSATE SODIUM 100 MG CAP PO SCH ×2 (08:29→16:33)
[2022-04-23] MEDS: PANTOPRAZOLE SOD 40 MG TABEC PO SCH (08:29)
[2022-04-23] MEDS: SODIUM CHLORIDE 1 GM TAB PO SCH ×3 (08:29→21:00)
[2022-04-23] MEDS: SUCRALFATE 1 GM TAB PO SCH ×4 (08:29→21:00)
[2022-04-23] MEDS: LORATADINE 10 MG TAB PO SCH (08:29)
[2022-04-23] MEDS: LATANOPROST(OPTH) 2.5 ML BTL OU SCH (21:00)
[2022-04-24] VITALS (7 sets, daily range): BP systolic 119–148; BP diastolic 45–72
[2022-04-24] MEDS: SODIUM CHLORIDE 0.9% 1000ML 1,000 ML IV SCH ×2 (05:21→20:04)
[2022-04-24] MEDS: LEVOTHYROXINE SODIUM 25 MCG TABLET PO SCH (05:44)
[2022-04-24] MEDS: FUROSEMIDE 40 MG TAB PO SCH (09:16)
[2022-04-24] MEDS: LORATADINE 10 MG TAB PO SCH (09:17)
[2022-04-24] MEDS: PANTOPRAZOLE SOD 40 MG TABEC PO SCH (09:17)
[2022-04-24] MEDS: DOCUSATE SODIUM 100 MG CAP PO SCH ×2 (09:17→16:05)
[2022-04-24] MEDS: SUCRALFATE 1 GM TAB PO SCH ×4 (09:17→20:04)
[2022-04-24] MEDS: SODIUM CHLORIDE 1 GM TAB PO SCH ×3 (09:17→20:04)
[2022-04-24] MEDS: SALMETEROL/FLUTICASONE 100/50 INH SCH ×2 (10:50→19:05)
[2022-04-24] MEDS: ACETAMINOPHEN 325 MG TAB PO PRN (20:03)
[2022-04-24] MEDS: LATANOPROST(OPTH) 2.5 ML BTL OU SCH (20:12)
[2022-04-25] VITALS (7 sets, daily range): BP systolic 123–157; BP diastolic 52–92
[2022-04-25] MEDS: LEVOTHYROXINE SODIUM 25 MCG TABLET PO SCH (06:00)
[2022-04-25] MEDS: SALMETEROL/FLUTICASONE 100/50 INH SCH ×2 (07:00→19:00)
[2022-04-25] MEDS: PANTOPRAZOLE SOD 40 MG TABEC PO SCH (11:10)
[2022-04-25] MEDS: FUROSEMIDE 40 MG TAB PO SCH (11:10)
[2022-04-25] MEDS: SUCRALFATE 1 GM TAB PO SCH ×4 (11:10→21:12)
[2022-04-25] MEDS: SODIUM CHLORIDE 1 GM TAB PO SCH ×3 (11:10→21:12)
[2022-04-25] MEDS: LORATADINE 10 MG TAB PO SCH (11:10)
[2022-04-25] MEDS: DOCUSATE SODIUM 100 MG CAP PO SCH ×2 (11:18→17:47)
[2022-04-25] MEDS: FUROSEMIDE INJ 10 MG/ML 4 ML VIAL IV SCH ×2 (16:06→17:47)
[2022-04-25 16:44] LABS: ALBUMIN 1.4 g/dL (3.5-5.0); ALBUMIN/GLOBULIN RATIO 0.4 (0.8-2.0); ANION GAP 15.9 mmol/L (8-16); CALCIUM 7.8 mg/dL (8.4-10.2); CREATININE, SERUM 0.76 mg/dL (0.57-1.11)
[2022-04-25 16:45] LABS: POTASSIUM 2.9 mmol/L (3.5-5.1)
[2022-04-25] MEDS: LATANOPROST(OPTH) 2.5 ML BTL OU SCH (21:12)
[2022-04-25] MEDS: POTASSIUM CHLORIDE 20MEQ/100ML 100 ML IV SCH ×2 (21:14→23:18)
[2022-04-26] VITALS: BP 128/50
[2022-04-26] MEDS: FUROSEMIDE INJ 10 MG/ML 4 ML VIAL IV SCH ×2 (00:22→06:38)
[2022-04-26] MEDS: POTASSIUM CHLORIDE 20MEQ/100ML 100 ML IV SCH ×2 (00:30→01:19)
[2022-04-26] MEDS ORDERED: POTASSIUM CHLORIDE 20MEQ/100ML 100 ML IV ONE (03:45)
[2022-04-26 04:00] VITALS: BP 129/63
[2022-04-26] MEDS: LEVOTHYROXINE SODIUM 25 MCG TABLET PO SCH (06:00)
[2022-04-26] MEDS: SALMETEROL/FLUTICASONE 100/50 INH SCH (06:10)
[2022-04-26 07:59] LABS: BASOPHILS # (AUTO) 0.1 (0.0-0.1); BASOPHILS % 1.4 % (0.0-1.0); EOSINOPHILS # (AUTO) 0.5 (0.0-0.4); HEMATOCRIT 31.4 % (34.2-44.1); HEMOGLOBIN 10.1 g/dL (12.0-16.0); LYMPHOCYTES # (AUTO) 1.7 (1.0-3.2); LYMPHOCYTES % 17.5 % (18.0-39.1); MEAN CORPUSCULAR HEMOGLOBIN 26.4 pg (28-32); MEAN CORPUSCULAR HGB CONC 32.2 g/dL (31-35); MONOCYTES # (AUTO) 1.4 (0.2-0.8); MONOCYTES % 14.4 % (4.4-11.3); NEUTROPHILS # (AUTO) 5.9 (2.1-6.9); NEUTROPHILS % 60.4 % (38.7-80.0); PLATELET COUNT 215 x10e3/uL (140-360); RED BLOOD COUNT 3.83 x10e6/uL (3.6-5.1); RED CELL DISTRIBUTION WIDTH 18.5 % (11.7-14.4)
[2022-04-26 08:10] VITALS: BP 129/63
[2022-04-26 08:12] LABS: ALBUMIN 1.4 g/dL (3.5-5.0); ALBUMIN/GLOBULIN RATIO 0.4 (0.8-2.0); ANION GAP 13.5 mmol/L (8-16); CALCIUM 7.8 mg/dL (8.4-10.2); CREATININE, SERUM 0.74 mg/dL (0.57-1.11); POTASSIUM 3.5 mmol/L (3.5-5.1)
[2022-04-26 08:32] VITALS: BP 131/70
[2022-04-26] MEDS: LORATADINE 10 MG TAB PO SCH (08:55)
[2022-04-26] MEDS: SODIUM CHLORIDE 1 GM TAB PO SCH ×2 (08:55→15:58)
[2022-04-26] MEDS: DOCUSATE SODIUM 100 MG CAP PO SCH ×2 (08:55→18:14)
[2022-04-26] MEDS: PANTOPRAZOLE SOD 40 MG TABEC PO SCH (08:55)
[2022-04-26] MEDS: SUCRALFATE 1 GM TAB PO SCH ×3 (08:55→18:14)
[2022-04-26] MEDS ORDERED: SODIUM CHLORIDE FLUSH 10 ML SYR IV SCH (09:00)
[2022-04-26] MEDS ORDERED: POTASSIUM CHLORIDE 20 MEQ TAB CR PO ONE (11:45)
[2022-04-26 11:51] VITALS: BP 124/56
[2022-04-26 15:54] VITALS: BP 110/51
[2022-04-26] MEDS ORDERED: FUROSEMIDE 40 MG TAB PO SCH (18:00)
== END 2022-04-26 19:04 | DRG 643 ==
LOC: ER 08:00 → ERHOLD 12:07 → MED/SURG3 16:57 → MED/SURG2 04-16 17:52
PROVIDERS: ADMIT Family Medicine; ATTEND Family Medicine
PROC: 02HV33Z Insertion of Infusion Device into Superior Vena Cava, Percutaneous Approach (ICD-10-PCS; 2022-04-07)
PROC: 30243N1 Transfusion of Nonautologous Red Blood Cells into Central Vein, Percutaneous Approach (ICD-10-PCS; 2022-04-21)
PROC: 0DBP8ZX Excision of Rectum, Via Natural or Artificial Opening Endoscopic, Diagnostic (ICD-10-PCS; principal; 2022-04-21 18:28)
PROC: 0DBN8ZX Excision of Sigmoid Colon, Via Natural or Artificial Opening Endoscopic, Diagnostic (ICD-10-PCS; 2022-04-21 18:28)
DX: E22.2 Syndrome of inappropriate secretion of antidiuretic hormone (principal); K29.71 Gastritis, unspecified, with bleeding; E44.0 Moderate protein-calorie malnutrition; N17.9 Acute kidney failure, unspecified; E87.21 Acute metabolic acidosis; K56.7 Ileus, unspecified; N39.0 Urinary tract infection, site not specified; R53.1 Weakness; E86.0 Dehydration; I10 Essential (primary) hypertension; E03.9 Hypothyroidism, unspecified; M35.3 Polymyalgia rheumatica; M48.02 Spinal stenosis, cervical region; G89.4 Chronic pain syndrome; K59.03 Drug induced constipation; T40.2X5A Adverse effect of other opioids, initial encounter; K63.5 Polyp of colon; K57.30 Diverticulosis of large intestine without perforation or abscess without bleeding; K64.8 Other hemorrhoids; K31.7 Polyp of stomach and duodenum; Z82.49 Family history of ischemic heart disease and other diseases of the circulatory system; Z79.52 Long term (current) use of systemic steroids; Z88.5 Allergy status to narcotic agent; Z86.718 Personal history of other venous thrombosis and embolism; Z85.3 Personal history of malignant neoplasm of breast; Z20.822 Contact with and (suspected) exposure to COVID-19; R33.9 Retention of urine, unspecified; T83.091A Other mechanical complication of indwelling urethral catheter, initial encounter; E87.6 Hypokalemia; D50.9 Iron deficiency anemia, unspecified; E66.9 Obesity, unspecified; Z68.30 Body mass index [BMI] 30.0-30.9, adult; K21.9 Gastro-esophageal reflux disease without esophagitis
CPT/HCPCS: 36415; 36569; 36600; 43239; 45378; 45385; 70450; 71045; 72125; 74018; 74022; 74176; 74177; 74270; 80048; 80053; 80307; 81001; 82140; 82533; 82728; 82805; 82948; 83540; 83605; 83735; 83935; 84100; 84436; 84443; 84466; 84479; 84484; 84550; 85025; 85610; 85730; 86850; 86900; 86920; 87040; 87086; 87400; 87420; 88305; 88342; 93005; 94664; 94760; 94799; 96361; 99251; 99284; J0456; J0696; J1756; J1885; J1940; J2405; J2543; J2765; J3475; J3480; J7030; J7042; J7050; J7070; J7512; P9016; Q0162; Q9963; Q9967

== ENCOUNTER 2022-05-04 14:05 | Inpatient (IN) | payer MEDICARE ==
[~2022-05-04] VITALS: Ht 162.6 cm; Wt 87.2 kg
[~2022-05-04 14:05] MED LIST changes: +ALENDRONATE SOD70 MG PO; +AMLODIPINE BESYL5 MG PO; +CELEBREX200 MG PO; +HYDROCHLOROTHIA50 MG PO; +IRBESARTAN150 MG PO; +NEURONTIN100 MG PO; +PANTOPRAZOLE SO40 MG PO; +PREDNISONE10 MG PO; +SINGULAIR10 MG PO
[2022-05-04 14:48] LABS: BASOPHILS # (AUTO) 0.1 (0.0-0.1); BASOPHILS % 0.8 % (0.0-1.0); EOSINOPHILS # (AUTO) 0.2 (0.0-0.4); EOSINOPHILS % 1.9 % (0.0-6.0); HEMATOCRIT 27.6 % (34.2-44.1); HEMOGLOBIN 8.8 g/dL (12.0-16.0); LYMPHOCYTES # (AUTO) 1.9 (1.0-3.2); LYMPHOCYTES % 16.2 % (18.0-39.1); MEAN CORPUSCULAR HEMOGLOBIN 25.7 pg (28-32); MEAN CORPUSCULAR HGB CONC 31.9 g/dL (31-35); MEAN CORPUSCULAR VOLUME 80.5 fL (81-99); MONOCYTES # (AUTO) 1.8 (0.2-0.8); MONOCYTES % 15.2 % (4.4-11.3); NEUTROPHILS # (AUTO) 7.7 (2.1-6.9); NEUTROPHILS % 64.2 % (38.7-80.0); PLATELET COUNT 143 x10e3/uL (140-360); RED BLOOD COUNT 3.43 x10e6/uL (3.6-5.1); RED CELL DISTRIBUTION WIDTH 18.8 % (11.7-14.4)
[2022-05-04 14:51] LABS: CLARITY,URINE CLOUDY (CLEAR); COLOR,URINE YELLOW (YELLOW); KETONES,URINE TRACE (NEGATIVE); LEUKOCYTE ESTERASE ,URINE LARGE (NEGATIVE); NITRITE,URINE NEGATIVE (NEGATIVE); PROTEIN,URINE DIPSTICK 2+ (NEGATIVE)
[2022-05-04 14:52] LABS: URINE UROBILINOGEN 1 mg/dL (0.2 - 1)
[2022-05-04 15:02] LABS: BACTERIA,URINE MODERATE /HPF; WBC,URINE (MAN) >50 /HPF (0-5)
[2022-05-04 15:09] LABS: ALBUMIN 1.3 g/dL (3.5-5.0); ALBUMIN/GLOBULIN RATIO 0.3 (0.8-2.0); ANION GAP 17.1 mmol/L (8-16); CREATININE, SERUM 0.85 mg/dL (0.57-1.11); POTASSIUM 3.1 mmol/L (3.5-5.1)
[2022-05-04 15:27] LABS: INFLUENZAE A&B ANTIGEN (RAPID) NEGATIVE (NEGATIVE)
[2022-05-04 15:38] LABS: RESPIRATORY SYNC. VIRUS NEGATIVE (NEGATIVE)
[2022-05-04] MEDS ORDERED: SODIUM CHLORIDE 0.9% 500ML 500 ML IV STA (16:19)
[2022-05-04 19:00] VITALS: BP 121/68
[2022-05-04] MEDS: IPRATROPIUM BROMIDE 0.02% 2.5 ML NEB NEB SCH (19:00)
[2022-05-04] MEDS ORDERED: SODIUM CHLORIDE 0.9% 1000ML 1,000 ML IV ONE (19:15)
[2022-05-04] MEDS: ENOXAPARIN SOD INJ 40 MG/0.4 ML SYR SC SCH (19:55)
[2022-05-04 20:00] VITALS: BP 121/68
[2022-05-04] MEDS ORDERED: Vancomycin IV 1 GM in SODIUM CHLORIDE 0.9% 250ML 250 ML IV ONE (20:00)
[2022-05-04 20:26] LABS: EOSINOPHILS % (MANUAL) 2 % (0-7); LYMPHOCYTES % (MANUAL) 13 % (19-48); MONOCYTES % (MANUAL) 8 % (3.4-9.0); NEUTROPHILS % (MANUAL) 74 % (40-74)
[2022-05-04 20:27] LABS: HYPERSEGMENTED NEUTROPHILS FEW; PLATELET ESTIMATE ADEQUATE; PLATELET MORPHOLOGY COMMENT NORMAL; RBC MORPHOLOGY COMMENT NORMAL
[2022-05-04 21:00] VITALS: BP 121/68
[2022-05-04] MEDS: SODIUM CHLORIDE 0.9% 1000ML 1,000 ML IV SCH (22:00)
[2022-05-04 23:27] LABS: ANION GAP 17.2 mmol/L (8-16); CALCIUM 7.6 mg/dL (8.4-10.2); CREATININE, SERUM 0.82 mg/dL (0.57-1.11); POTASSIUM 3.2 mmol/L (3.5-5.1)
[2022-05-05] VITALS (7 sets, daily range): BP systolic 99–108; BP diastolic 49–60
[2022-05-05] MEDS: IPRATROPIUM BROMIDE 0.02% 2.5 ML NEB NEB SCH ×4 (01:35→19:46)
[2022-05-05] MEDS ORDERED: CARAFATE1 GM PO (04:48)
[2022-05-05] MEDS: SODIUM CHLORIDE 0.9% 1000ML 1,000 ML IV SCH (05:00)
[2022-05-05 05:46] LABS: BASOPHILS # (AUTO) 0.1 (0.0-0.1); BASOPHILS % 0.4 % (0.0-1.0); EOSINOPHILS # (AUTO) 0.3 (0.0-0.4); EOSINOPHILS % 2.4 % (0.0-6.0); HEMATOCRIT 24.1 % (34.2-44.1); HEMOGLOBIN 8.1 g/dL (12.0-16.0); LYMPHOCYTES # (AUTO) 1.8 (1.0-3.2); LYMPHOCYTES % 12.8 % (18.0-39.1); MEAN CORPUSCULAR HEMOGLOBIN 26.6 pg (28-32); MEAN CORPUSCULAR HGB CONC 33.6 g/dL (31-35); MEAN CORPUSCULAR VOLUME 79.3 fL (81-99); MONOCYTES # (AUTO) 1.2 (0.2-0.8); MONOCYTES % 8.4 % (4.4-11.3); NEUTROPHILS # (AUTO) 10.5 (2.1-6.9); NEUTROPHILS % 74.6 % (38.7-80.0); PLATELET COUNT 140 x10e3/uL (140-360); RED BLOOD COUNT 3.04 x10e6/uL (3.6-5.1); RED CELL DISTRIBUTION WIDTH 20.7 % (11.7-14.4)
[2022-05-05 06:11] LABS: ANION GAP 17.3 mmol/L (8-16); CALCIUM 7.6 mg/dL (8.4-10.2); CREATININE, SERUM 0.95 mg/dL (0.57-1.11); POTASSIUM 3.3 mmol/L (3.5-5.1)
[2022-05-05] MEDS ORDERED: POTASSIUM CHLORIDE 20MEQ/100ML 100 ML IV ONE ×2 (13:30→18:00)
[2022-05-05] MEDS ORDERED: SODIUM BICARBONATE 8.4% 150 ML in DEXTROSE 5% 1,000 ML IV ONE (14:00)
[2022-05-05 14:07] LABS: ABG HCO3 21 mmol/L (22-26); ABG PCO2 29 mmHg (35-45); ABG PH 7.47 (7.35-7.45); ABG PO2 131 mmHg (80-105); ABG TCO2 22
[2022-05-05] MEDS ORDERED: DEXTROSE 5%/0.45% SOD CHL 1,000 ML IV SCH (14:30)
[2022-05-05] MEDS: ENOXAPARIN SOD INJ 40 MG/0.4 ML SYR SC SCH (17:00)
[2022-05-06] VITALS (8 sets, daily range): BP systolic 93–119; BP diastolic 46–54
[2022-05-06] MEDS: IPRATROPIUM BROMIDE 0.02% 2.5 ML NEB NEB SCH ×4 (00:55→19:47)
[2022-05-06 13:39] LABS: BASOPHILS # (AUTO) 0.1 (0.0-0.1); BASOPHILS % 0.6 % (0.0-1.0); EOSINOPHILS # (AUTO) 0.9 (0.0-0.4); EOSINOPHILS % 7.8 % (0.0-6.0); HEMOGLOBIN 6.8 g/dL (12.0-16.0); LYMPHOCYTES # (AUTO) 1.3 (1.0-3.2); LYMPHOCYTES % 11.2 % (18.0-39.1); MEAN CORPUSCULAR HEMOGLOBIN 25.4 pg (28-32); MEAN CORPUSCULAR HGB CONC 30.5 g/dL (31-35); MEAN CORPUSCULAR VOLUME 83.2 fL (81-99); MONOCYTES # (AUTO) 1.4 (0.2-0.8); MONOCYTES % 11.9 % (4.4-11.3); NEUTROPHILS % 67.1 % (38.7-80.0); PLATELET COUNT 173 x10e3/uL (140-360); RED BLOOD COUNT 2.68 x10e6/uL (3.6-5.1); RED CELL DISTRIBUTION WIDTH 19.5 % (11.7-14.4)
[2022-05-06 13:48] LABS: HEMATOCRIT 22.3 % (34.2-44.1)
[2022-05-06 13:54] LABS: ANION GAP 15.8 mmol/L (8-16); CREATININE, SERUM 1.1 mg/dL (0.57-1.11)
[2022-05-06 14:05] LABS: POTASSIUM 2.8 mmol/L (3.5-5.1)
[2022-05-06 14:08] LABS: CALCIUM 6.8 mg/dL (8.4-10.2)
[2022-05-06] MEDS ORDERED: SODIUM CHLORIDE 0.9% 250ML 250 ML IV ONE (14:45)
[2022-05-06] MEDS ORDERED: POTASSIUM CHLORIDE 20MEQ/100ML 200 ML IV ONE (15:00)
[2022-05-06] MEDS: SODIUM CHLORIDE 0.9% 1000ML 1,000 ML IV SCH (15:02)
[2022-05-06] MEDS: ENOXAPARIN SOD INJ 40 MG/0.4 ML SYR SC SCH (16:41)
[2022-05-06] MEDS ORDERED: CALCIUM GLUC 1 G/50 ML NACL 50 ML IV ONE (18:00)
[2022-05-06] MEDS ORDERED: SODIUM CHLORIDE 0.9% 250ML 250 ML ONE (20:57)
[2022-05-07] VITALS (7 sets, daily range): BP systolic 111–116; BP diastolic 38–60
[2022-05-07] MEDS: IPRATROPIUM BROMIDE 0.02% 2.5 ML NEB NEB SCH ×4 (01:35→19:15)
[2022-05-07] MEDS ORDERED: SODIUM CHLORIDE 0.9% 250ML 250 ML ONE (01:56)
[2022-05-07] MEDS: SODIUM CHLORIDE 0.9% 1000ML 1,000 ML IV SCH (04:05)
[2022-05-07 09:20] LABS: BASOPHILS # (AUTO) 0.1 (0.0-0.1); BASOPHILS % 0.9 % (0.0-1.0); EOSINOPHILS % 6.9 % (0.0-6.0); HEMATOCRIT 32.8 % (34.2-44.1); HEMOGLOBIN 10.4 g/dL (12.0-16.0); LYMPHOCYTES # (AUTO) 2.1 (1.0-3.2); LYMPHOCYTES % 14.6 % (18.0-39.1); MEAN CORPUSCULAR HEMOGLOBIN 26.1 pg (28-32); MEAN CORPUSCULAR HGB CONC 31.7 g/dL (31-35); MEAN CORPUSCULAR VOLUME 82.4 fL (81-99); MONOCYTES # (AUTO) 1.6 (0.2-0.8); MONOCYTES % 11.3 % (4.4-11.3); NEUTROPHILS # (AUTO) 9.2 (2.1-6.9); NEUTROPHILS % 64.9 % (38.7-80.0); PLATELET COUNT 162 x10e3/uL (140-360); RED BLOOD COUNT 3.98 x10e6/uL (3.6-5.1); RED CELL DISTRIBUTION WIDTH 18.4 % (11.7-14.4)
[2022-05-07 09:50] LABS: ALBUMIN 1.3 g/dL (3.5-5.0); ALBUMIN/GLOBULIN RATIO 0.4 (0.8-2.0); ANION GAP 18.5 mmol/L (8-16); CALCIUM 7.7 mg/dL (8.4-10.2); CREATININE, SERUM 0.98 mg/dL (0.57-1.11); MAGNESIUM 1.3 MG/DL (1.3-2.1); POTASSIUM 3.5 mmol/L (3.5-5.1)
[2022-05-07] MEDS ORDERED: FUROSEMIDE INJ 10 MG/ML 2 ML VIAL IV ONE (10:00)
[2022-05-07] MEDS ORDERED: ACETAMINOPHEN 1000 MG/100 ML IV PRN (12:00)
[2022-05-07] MEDS: ENOXAPARIN SOD INJ 40 MG/0.4 ML SYR SC SCH (17:17)
[2022-05-08] VITALS (8 sets, daily range): BP systolic 88–124; BP diastolic 47–66
[2022-05-08] MEDS: IPRATROPIUM BROMIDE 0.02% 2.5 ML NEB NEB SCH ×4 (00:20→19:50)
[2022-05-08] MEDS: LEVOTHYROXINE SODIUM 25 MCG TABLET PO SCH (06:00)
[2022-05-08] MEDS: LATANOPROST(OPTH) 2.5 ML BTL OU SCH (09:27)
[2022-05-08] MEDS: SODIUM CHLORIDE 0.9% 1000ML 1,000 ML IV SCH (09:33)
[2022-05-08 09:37] LABS: BASOPHILS # (AUTO) 0.2 (0.0-0.1); BASOPHILS % 1.4 % (0.0-1.0); EOSINOPHILS # (AUTO) 0.7 (0.0-0.4); EOSINOPHILS % 5.8 % (0.0-6.0); HEMOGLOBIN 10.7 g/dL (12.0-16.0); LYMPHOCYTES # (AUTO) 2.1 (1.0-3.2); LYMPHOCYTES % 17.4 % (18.0-39.1); MEAN CORPUSCULAR HEMOGLOBIN 26.2 pg (28-32); MEAN CORPUSCULAR HGB CONC 31.5 g/dL (31-35); MEAN CORPUSCULAR VOLUME 83.1 fL (81-99); MONOCYTES # (AUTO) 1.6 (0.2-0.8); NEUTROPHILS # (AUTO) 7.5 (2.1-6.9); NEUTROPHILS % 60.9 % (38.7-80.0); PLATELET COUNT 138 x10e3/uL (140-360); RED BLOOD COUNT 4.09 x10e6/uL (3.6-5.1); RED CELL DISTRIBUTION WIDTH 19.3 % (11.7-14.4)
[2022-05-08 09:54] LABS: ANION GAP 19.5 mmol/L (8-16); CALCIUM 7.7 mg/dL (8.4-10.2); CREATININE, SERUM 1.02 mg/dL (0.57-1.11); POTASSIUM 3.5 mmol/L (3.5-5.1)
[2022-05-08] MEDS: ENOXAPARIN SOD INJ 40 MG/0.4 ML SYR SC SCH (16:31)
[2022-05-09] VITALS (7 sets, daily range): BP systolic 92–112; BP diastolic 41–56
[2022-05-09] MEDS: IPRATROPIUM BROMIDE 0.02% 2.5 ML NEB NEB SCH ×4 (00:20→19:40)
[2022-05-09] MEDS: SODIUM CHLORIDE 0.9% 1000ML 1,000 ML IV SCH (04:45)
[2022-05-09] MEDS: LEVOTHYROXINE SODIUM 25 MCG TABLET PO SCH (05:20)
[2022-05-09 05:47] LABS: BASOPHILS # (AUTO) 0.2 (0.0-0.1); BASOPHILS % 1.6 % (0.0-1.0); EOSINOPHILS # (AUTO) 0.7 (0.0-0.4); EOSINOPHILS % 6.3 % (0.0-6.0); HEMATOCRIT 31.7 % (34.2-44.1); HEMOGLOBIN 9.9 g/dL (12.0-16.0); LYMPHOCYTES # (AUTO) 1.9 (1.0-3.2); MEAN CORPUSCULAR HEMOGLOBIN 26.1 pg (28-32); MEAN CORPUSCULAR HGB CONC 31.2 g/dL (31-35); MEAN CORPUSCULAR VOLUME 83.6 fL (81-99); MONOCYTES # (AUTO) 1.3 (0.2-0.8); MONOCYTES % 11.3 % (4.4-11.3); NEUTROPHILS # (AUTO) 7.3 (2.1-6.9); NEUTROPHILS % 62.8 % (38.7-80.0); PLATELET COUNT 133 x10e3/uL (140-360); RED BLOOD COUNT 3.79 x10e6/uL (3.6-5.1); RED CELL DISTRIBUTION WIDTH 19.8 % (11.7-14.4)
[2022-05-09 06:10] LABS: ANION GAP 19.3 mmol/L (8-16); CALCIUM 7.6 mg/dL (8.4-10.2); CREATININE, SERUM 1.15 mg/dL (0.57-1.11); POTASSIUM 3.3 mmol/L (3.5-5.1)
[2022-05-09] MEDS: LATANOPROST(OPTH) 2.5 ML BTL OU SCH (08:31)
[2022-05-09] MEDS: IRON SUCROSE 100 MG in SODIUM CHLORIDE 0.9% 100 ML IV SCH (12:41)
[2022-05-09] MEDS: ENOXAPARIN SOD INJ 40 MG/0.4 ML SYR SC SCH (17:47)
[2022-05-10] VITALS (9 sets, daily range): BP systolic 100–117; BP diastolic 47–86
[2022-05-10] MEDS: IPRATROPIUM BROMIDE 0.02% 2.5 ML NEB NEB SCH ×4 (00:50→19:45)
[2022-05-10] MEDS: SODIUM CHLORIDE 0.9% 1000ML 1,000 ML IV SCH ×2 (02:34→20:15)
[2022-05-10] MEDS: LEVOTHYROXINE SODIUM 25 MCG TABLET PO SCH (06:24)
[2022-05-10 09:11] LABS: BASOPHILS # (AUTO) 0.1 (0.0-0.1); BASOPHILS % 1.4 % (0.0-1.0); EOSINOPHILS # (AUTO) 0.7 (0.0-0.4); EOSINOPHILS % 6.3 % (0.0-6.0); LYMPHOCYTES # (AUTO) 1.6 (1.0-3.2); LYMPHOCYTES % 15.7 % (18.0-39.1); MEAN CORPUSCULAR HEMOGLOBIN 26.5 pg (28-32); MEAN CORPUSCULAR HGB CONC 32.3 g/dL (31-35); MONOCYTES # (AUTO) 1.1 (0.2-0.8); MONOCYTES % 10.2 % (4.4-11.3); NEUTROPHILS # (AUTO) 6.7 (2.1-6.9); NEUTROPHILS % 64.9 % (38.7-80.0); PLATELET COUNT 101 x10e3/uL (140-360); RED BLOOD COUNT 3.78 x10e6/uL (3.6-5.1); RED CELL DISTRIBUTION WIDTH 20.6 % (11.7-14.4)
[2022-05-10] MEDS: LATANOPROST(OPTH) 2.5 ML BTL OU SCH (09:35)
[2022-05-10] MEDS: IRON SUCROSE 100 MG in SODIUM CHLORIDE 0.9% 100 ML IV SCH (10:34)
[2022-05-10] MEDS: ENOXAPARIN SOD INJ 40 MG/0.4 ML SYR SC SCH (16:50)
[2022-05-11] VITALS (8 sets, daily range): BP systolic 102–111; BP diastolic 48–63
[2022-05-11] MEDS: IPRATROPIUM BROMIDE 0.02% 2.5 ML NEB NEB SCH ×4 (00:30→20:05)
[2022-05-11] MEDS: LEVOTHYROXINE SODIUM 25 MCG TABLET PO SCH (05:02)
[2022-05-11] MEDS: LATANOPROST(OPTH) 2.5 ML BTL OU SCH (09:26)
[2022-05-11] MEDS: IRON SUCROSE 100 MG in SODIUM CHLORIDE 0.9% 100 ML IV SCH (09:26)
[2022-05-11] MEDS: SPIRONOLACTONE 25 MG TAB PO SCH (11:00)
[2022-05-11] MEDS: FUROSEMIDE 40 MG TAB PO SCH (11:00)
[2022-05-11] MEDS: SODIUM CHLORIDE 0.9% 1000ML 1,000 ML IV SCH (13:35)
[2022-05-11] MEDS: ENOXAPARIN SOD INJ 40 MG/0.4 ML SYR SC SCH (17:32)
[2022-05-12] VITALS (8 sets, daily range): BP systolic 92–113; BP diastolic 43–76
[2022-05-12] MEDS: IPRATROPIUM BROMIDE 0.02% 2.5 ML NEB NEB SCH ×4 (00:35→20:05)
[2022-05-12] MEDS: LEVOTHYROXINE SODIUM 25 MCG TABLET PO SCH (06:06)
[2022-05-12 06:34] LABS: ALBUMIN 1.1 g/dL (3.5-5.0); ALBUMIN/GLOBULIN RATIO 0.3 (0.8-2.0); ANION GAP 17.9 mmol/L (8-16); CALCIUM 7.7 mg/dL (8.4-10.2); CREATININE, SERUM 1.01 mg/dL (0.57-1.11)
[2022-05-12 06:43] LABS: POTASSIUM 2.9 mmol/L (3.5-5.1)
[2022-05-12] MEDS: POTASSIUM CHLORIDE 20MEQ/100ML 100 ML IV SCH ×2 (07:30→09:42)
[2022-05-12] MEDS: SPIRONOLACTONE 25 MG TAB PO SCH (09:39)
[2022-05-12] MEDS: FUROSEMIDE 40 MG TAB PO SCH (09:40)
[2022-05-12] MEDS: LATANOPROST(OPTH) 2.5 ML BTL OU SCH (09:42)
[2022-05-12 12:43] LABS: TOTAL PROTEIN, URINE 38.1 mg/dL (1-14)
[2022-05-12] MEDS: SODIUM CHLORIDE 0.9% 1000ML 1,000 ML IV SCH (12:45)
[2022-05-12 13:22] LABS: TOTAL PROTEIN 24HR, URINE 85.7 mg/24hr (50-100)
[2022-05-13] VITALS: BP 97/43
[2022-05-13] MEDS: IPRATROPIUM BROMIDE 0.02% 2.5 ML NEB NEB SCH ×3 (02:55→12:30)
[2022-05-13 04:00] VITALS: BP 106/50
[2022-05-13] MEDS: LEVOTHYROXINE SODIUM 25 MCG TABLET PO SCH (05:29)
[2022-05-13 08:15] VITALS: BP 82/51
[2022-05-13 08:49] VITALS: BP 82/51
[2022-05-13] MEDS: SODIUM CHLORIDE 0.9% 1000ML 1,000 ML IV SCH (09:24)
[2022-05-13] MEDS: LATANOPROST(OPTH) 2.5 ML BTL OU SCH (09:25)
[2022-05-13] MEDS: FUROSEMIDE 40 MG TAB PO SCH (09:25)
[2022-05-13] MEDS: SPIRONOLACTONE 25 MG TAB PO SCH (09:25)
[2022-05-13 12:08] VITALS: BP 95/30
== END 2022-05-13 13:54 | disposition hospice, home (50) | DRG 193 ==
LOC: ER 14:09 → ERHOLD 16:26 → MED/SURG2 18:01
PROVIDERS: ADMIT Family Medicine; ATTEND Family Medicine
PROC: 02HV33Z Insertion of Infusion Device into Superior Vena Cava, Percutaneous Approach (ICD-10-PCS; 2022-05-04)
PROC: 30243N1 Transfusion of Nonautologous Red Blood Cells into Central Vein, Percutaneous Approach (ICD-10-PCS; 2022-05-04)
PROC: 05HY33Z Insertion of Infusion Device into Upper Vein, Percutaneous Approach (ICD-10-PCS; 2022-05-04)
PROC: 02HV33Z Insertion of Infusion Device into Superior Vena Cava, Percutaneous Approach (ICD-10-PCS; principal; 2022-05-07)
DX: J18.9 Pneumonia, unspecified organism (principal); J96.01 Acute respiratory failure with hypoxia; E44.0 Moderate protein-calorie malnutrition; N39.0 Urinary tract infection, site not specified; E87.20 Acidosis, unspecified; R62.7 Adult failure to thrive; Z68.33 Body mass index [BMI] 33.0-33.9, adult; E03.9 Hypothyroidism, unspecified; D64.9 Anemia, unspecified; E66.9 Obesity, unspecified; Y95 Nosocomial condition; R13.12 Dysphagia, oropharyngeal phase; E86.0 Dehydration
CPT/HCPCS: 36415; 36569; 36584; 36600; 70544; 70551; 71045; 71260; 74230; 80048; 80053; 81001; 81050; 82805; 83605; 83735; 83880; 84156; 84484; 85025; 86850; 86900; 86920; 87040; 87086; 87186; 87400; 87420; 93005; 93971; 94799; 96361; 97139; 99251; 99285; J0696; J1650; J1756; J1940; J2543; J3370; J3480; J7030; J7040; J7050; J7070; P9016